=== PATIENT | female | born 1960 | race Two or more races ===

== ENCOUNTER 2025-07-10 09:55 | Emergency (ER) | payer BC, MEDICAID ==
[~2025-07-10] VITALS: Ht 157.5 cm; Wt 73.0 kg
[~2025-07-10 09:55] MED LIST: METF-440 PO
[2025-07-10] MEDS ORDERED: ACETAMINOPHEN ES 500 MG TABLET ONE (10:14)
[2025-07-10] MEDS: ACETAMINOPHEN 325 MG TABLET PO ONE (10:17)
[2025-07-10] MEDS ORDERED: ATOR20TA PO (12:22)
[2025-07-10] MEDS ORDERED: SEVE800T28 PO (12:22)
[2025-07-10] MEDS ORDERED: LORA-258 PO (12:22)
[2025-07-10] MEDS ORDERED: LOPE2TAB23 PO (12:22)
[2025-07-10] MEDS ORDERED: SERT25TA5 PO (12:22)
[2025-07-10] MEDS ORDERED: CARV25TA2 PO (12:22)
[2025-07-10] MEDS ORDERED: FAMO20TA8 PO (12:22)
[2025-07-10] MEDS ORDERED: AMLO-213 PO (12:22)
[2025-07-10 12:29] LABS: PLATELET COUNT (AUTO) 168 K/uL (150-450); RED BLOOD CELL COUNT(AUTO) 3.76 MIL/uL (4.0-5.2); RED CELL DISTRIBUTION WIDTH 19.0 % (11.5-15.0); WHITE BLOOD COUNT (AUTO) 4.6 K/uL (4.3-11.0)
[2025-07-10 12:38] LABS: CALCIUM, SERUM 10.0 mg/dL (8.5-10.1); CREATININE 6.9 mg/dL (0.6-1.3); SODIUM SERUM 135 mmol/L (136-145); UREA NITROGEN, BLOOD 55 mg/dL (7-18)
[2025-07-10 12:45] LABS: ALCOHOL, BLOOD < 3 mg/dL (0-10)
[2025-07-10 12:52] LABS: SERUM AMMONIA 10 umol/L (11-32)
[2025-07-10 16:20] VITALS: BP 154/88; TEMP 98.5; O2SAT 99
== END 2025-07-10 16:20 | disposition home or self-care (01) ==
LOC: ER 11:18
DX: S53.402A Unspecified sprain of left elbow, initial encounter (principal); M25.562 Pain in left knee; M25.561 Pain in right knee; I12.0 Hypertensive chronic kidney disease with stage 5 chronic kidney disease or end stage renal disease; E11.22 Type 2 diabetes mellitus with diabetic chronic kidney disease; E78.5 Hyperlipidemia, unspecified; N18.6 End stage renal disease; Z79.899 Other long term (current) drug therapy; Z99.2 Dependence on renal dialysis; W01.0XXA Fall on same level from slipping, tripping and stumbling without subsequent striking against object, initial encounter; Y93.89 Activity, other specified; Y92.89 Other specified places as the place of occurrence of the external cause; Y99.8 Other external cause status
CPT/HCPCS: 36415; 71045-TC; 73080-TC; 73564-TC; 80048-TC; 82140-TC; 82962-TC; 84443-TC; 84484-TC; 85025-TC; 87081-TC; G0480